=== PATIENT | male | born 1930 | race Asian ===

== ENCOUNTER 2017-01-16 13:17 | Emergency (ER) | payer BC ==
[~2017-01-16] VITALS: Ht 165.1 cm; Wt 64.4 kg
[2017-01-16 13:17] VITALS: BP_SYST 180
[~2017-01-16 13:17] MED LIST: GLU500 PO; LIP20 PO; LISI40TA4 PO; MULT-1164 PO; OMEP40CA33 PO
--- NOTE | 2017-01-16 13:17 | NUR ---
BIB [facility] from home, Placed in room 01. Placed on awake overnight monitor, blood pressure machine and pulse oximeter. To gown for exam. Side rails up.
--- NOTE | 2017-01-16 13:20 | NUR ---
Dr. Mendez at bedside for evaluation
--- NOTE | 2017-01-16 13:25 | NUR ---
pt. to ER BIB EMS s/p Fall, as per pt. pt. and her were playing bingo at there community home, on a break pt. went to use the restroom and fell on his right side, facial edema loaclized to right cheek, abrasions to left hand, no other complaints at this time
--- NOTE | 2017-01-16 13:30 | NUR ---
ekg at bedside
--- NOTE | 2017-01-16 13:40 | NUR ---
Pt. to CT via [facility]
--- NOTE | 2017-01-16 13:54 | NUR ---
pt. back from CT via [facility]
[2017-01-16 14:07] LABS: BILIRUBIN,URINE NEGATIVE (NEGATIVE); BLOOD, URINE 1+ (NEGATIVE); CLARITY/URINE CLEAR (CLEAR); COLOR,URINE YELLOW (YELLOW); GLUCOSE,URINE NEGATIVE (NEGATIVE); KETONES,URINE NEGATIVE (NEGATIVE); LEUKOCYTE ESTERASE ,URINE NEGATIVE (NEGATIVE); NITRITE, URINE NEGATIVE (NEGATIVE); PROTEIN URINE 3+ (NEGATIVE); UROBILINOGEN,URINE 0.2 (0.2-1.0)
[2017-01-16 14:20] LABS: BACTERIA,URINE RARE /HPF (None Seen); RBC,URINE 0-3 /HPF (0-3); WBC,URINE 0-3 /HPF (0-3)
[2017-01-16 14:24] LABS: BASOPHILS % (AUTO) 0.6 % (0.0-2.0); EOSINOPHILS # (AUTO) 0.1 K/uL (0.0-0.4); EOSINOPHILS % (AUTO) 1.9 % (0.0-4.0); HEMATOCRIT 36.3 % (36-54); HEMOGLOBIN 12.6 g/dL (14.0-18.0); LYMPHOCYTES # (AUTO) 0.9 K/uL (1.0-5.5); MEAN CORPUSCULAR HEMOGLOBIN 34 pg (27-31); MEAN CORPUSCULAR HGB CONC 35 % (32-36); MEAN CORPUSCULAR VOLUME 98 fL (79.0-98.0); MONOCYTES # (AUTO) 0.4 K/uL (0.0-1.0); NEUTROPHILS # (AUTO) 4.8 K/uL (1.8-7.7); NEUTROPHILS % (AUTO) 76.5 % (40.0-70.0); PLATELET COUNT (AUTO) 214 K/uL (130-430); RED BLOOD CELL COUNT(AUTO) 3.71 MIL/uL (4.2-6.2); RED CELL DISTRIBUTION WIDTH 13.1 % (9.0-15.0); WHITE BLOOD COUNT (AUTO) 6.2 K/uL (4.8-10.8)
--- NOTE | 2017-01-16 14:30 | NUR ---
dr. gonzalez at bedside exaplaining to the family plan of care
[2017-01-16 14:31] LABS: ANION GAP 6 (5-15); CALCIUM 8.9 mg/dL (8.4-11.0); CHLORIDE 102 mmol/L (98-107); CREATININE 1.62 mg/dL (0.55-1.30); GLUCOSE 218 mg/dL (70-99); POTASSIUM 3.8 mmol/L (3.5-5.1); SODIUM SERUM 133 mmol/L (136-145); UREA NITROGEN, BLOOD 27 mg/dL (8-21)
[2017-01-16 14:36] LABS: ALANINE AMINOTRANSFERASE 27 U/L (12-78); ALBUMIN 3.4 g/dL (3.4-4.8); ASPARTATE AMINOTRANSFERASE 25 U/L (10-37); TOTAL BILIRUBIN 0.3 mg/dL (0.0-1.0); TOTAL PROTEIN, SERUM 7.1 g/dL (6.4-8.3)
--- NOTE | 2017-01-16 14:45 | NUR ---
Patient given written and verbal discharge instructions and verbalizes understanding. ER MD dr. gonzalez discussed with patient the results and treatment provided. Patient in stable condition. ID arm band removed. no Rx given. Patient educated on pain management and to follow up with PMD. Pain Scale 0/10 Opportunity for questions provided and answered.
[2017-01-16 15:06] VITALS: BP_SYST 127
== END 2017-01-16 14:45 | disposition home or self-care (01) ==
LOC: SED 13:17
DX: S00.83XA Contusion of other part of head, initial encounter (principal); I10 Essential (primary) hypertension; Z86.59 Personal history of other mental and behavioral disorders; Z85.46 Personal history of malignant neoplasm of prostate; Z88.1 Allergy status to other antibiotic agents; W19.XXXA Unspecified fall, initial encounter; Y93.89 Activity, other specified; Y92.89 Other specified places as the place of occurrence of the external cause; Y99.8 Other external cause status
CPT/HCPCS: 36415; 70450-TC; 70486-TC; 80053; 81000-TC; 85025; 93005; 99285